=== PATIENT | female | born 1965 | race Hispanic/Latino ===

== ENCOUNTER 2020-11-19 09:29 | Observation (INO) | payer OTHER ==
[~2020-11-19] VITALS: Ht 162.6 cm; Wt 78.9 kg
[2020-11-19] VITALS (7 sets, daily range): BP systolic 113–133; BP diastolic 58–83
[2020-11-19 10:05] LABS: BASOPHILS % (AUTO) 0.5 % (0.0-5.0); EOSINOPHILS % (AUTO) 0.6 % (0.0-8.0); HEMATOCRIT 41.4 % (36-48); LYMPHOCYTES % (AUTO) 41.9 % (21.0-51.0); MEAN CORPUSCULAR HEMOGLOBIN 28.7 pg (27.0-33.0); MEAN CORPUSCULAR HGB CONC 33.1 g/dL (32.0-36.0); MEAN CORPUSCULAR VOLUME 86.8 fL (79-99); MONOCYTES % (AUTO) 5.6 % (3.0-13.0); NEUTROPHILS % (AUTO) 50.8 % (40.0-77.0); PLATELET COUNT (AUTO) 148 K/uL (130-400); RED BLOOD CELL COUNT(AUTO) 4.77 MIL/uL (4.00-5.50); RED CELL DISTRIBUTION WIDTH 13.1 % (11.0-15.5); WHITE BLOOD COUNT (AUTO) 6.6 K/uL (4.8-10.8)
[2020-11-19 10:14] LABS: CARBON DIOXIDE 29 mmol/L (21-32); CHLORIDE 104 mmol/L (101-111); CREATININE 0.7 mg/dL (0.5-1.5); GLOMERULAR FILTR. RATE CALC 92 mL/min (>60); GLUCOSE,RANDOM 145 mg/dL (70-105); POTASSIUM 3.7 mmol/L (3.5-5.1); SODIUM SERUM 143 mmol/L (136-145); UREA NITROGEN, BLOOD 11 mg/dL (7-18)
[2020-11-19 10:25] LABS: ALANINE AMINOTRANSFERASE 62 U/L (12-78); ALBUMIN 3.8 g/dL (3.5-5.0); ASPARTATE AMINOTRANSFERASE 41 U/L (10-37); BILIRUBIN,TOTAL 0.4 mg/dL (0.2-1.0); CREATINE KINASE, TOTAL 112 U/L (21-232); MYOGLOBIN 41 ng/mL (10-92); TOTAL PROTEIN, SERUM 8.1 g/dL (6.0-8.3)
[2020-11-19 10:47] LABS: TROPONIN I < 0.04 ng/mL (0.00-0.06)
[2020-11-19] MEDS ORDERED: ASPIRIN 325 MG TABLET PO SCH (11:03)
[2020-11-19] MEDS ORDERED: ONDANSETRON HCL 4 MG/2 ML VIAL IV PRN (15:15)
[2020-11-19] MEDS ORDERED: ACETAMINOPHEN 325 MG TAB PO PRN ×2 (15:15)
[2020-11-19] MEDS ORDERED: NITROGLYCERIN 0.4 MG SL TAB SL PRN (15:15)
[2020-11-19 15:28] LABS: HEMOGLOBIN A1C 7.9 % (4.0-6.0)
[2020-11-19 15:36] LABS: MAGNESIUM 1.8 mg/dL (1.80-2.40); THYROID STIMULATING HORMONE 1.72 uIU/mL (0.36-3.74)
[2020-11-19] MEDS ORDERED: ATORVASTATIN CALCIUM 20 MG TABLET PO SCH (21:00)
[2020-11-19] MEDS: METOPROLOL TARTRATE 25 MG TAB PO SCH (21:46)
[2020-11-19] MEDS: FAMOTIDINE 20MG TAB 20 MG TAB PO SCH (21:46)
[2020-11-20 01:17] VITALS: BP 124/75
[2020-11-20 04:00] VITALS: BP 132/70
[2020-11-20 06:17] LABS: CREATININE 0.6 mg/dL (0.5-1.5); POTASSIUM 4.3 mmol/L (3.5-5.1)
[2020-11-20 07:13] LABS: BASOPHILS % (AUTO) 0.4 % (0.0-5.0); EOSINOPHILS % (AUTO) 0.7 % (0.0-8.0); HEMATOCRIT 38.6 % (36-48); LYMPHOCYTES % (AUTO) 36.2 % (21.0-51.0); MEAN CORPUSCULAR HEMOGLOBIN 29.2 pg (27.0-33.0); MEAN CORPUSCULAR HGB CONC 32.9 g/dL (32.0-36.0); MEAN CORPUSCULAR VOLUME 88.7 fL (79-99); MONOCYTES % (AUTO) 5.6 % (3.0-13.0); NEUTROPHILS % (AUTO) 56.9 % (40.0-77.0); PLATELET COUNT (AUTO) 195 K/uL (130-400); RED BLOOD CELL COUNT(AUTO) 4.35 MIL/uL (4.00-5.50); RED CELL DISTRIBUTION WIDTH 13.3 % (11.0-15.5); WHITE BLOOD COUNT (AUTO) 8.1 K/uL (4.8-10.8)
[2020-11-20 08:00] VITALS: BP 125/74
[2020-11-20] MEDS: FAMOTIDINE 20MG TAB 20 MG TAB PO SCH (08:28)
[2020-11-20] MEDS: METOPROLOL TARTRATE 25 MG TAB PO SCH (08:28)
[2020-11-20] MEDS ORDERED: ASPIRIN 325 MG TABLET PO SCH (09:00)
[2020-11-20 12:12] VITALS: BP 124/70
== END 2020-11-20 12:15 | disposition home or self-care (01) ==
LOC: EDH 09:29 → EDHIP 15:04
PROVIDERS: ADMIT Hospitalist; ATTEND Hospitalist
DX: R07.2 Precordial pain (principal); E11.65 Type 2 diabetes mellitus with hyperglycemia; E78.5 Hyperlipidemia, unspecified; Z82.49 Family history of ischemic heart disease and other diseases of the circulatory system; Z90.710 Acquired absence of both cervix and uterus
CPT/HCPCS: 36415 ×2; 71045; 80048; 80053; 80061; 82550; 83036; 83735; 83874; 83880; 84443; 84484 ×3; 85025 ×2; 93005 ×3; 99285; G0378 ×23